=== PATIENT | male | born 1945 | race Caucasian/White ===

== ENCOUNTER → 2017-03-11 | Outpatient (CLI) | payer MEDICARE, BC ==
[~2017-03-11] MED LIST: CYMBALTA60 MG PO; FINASTERIDE5 MG PO; JANUMET 50-1,01 EACH PO; LIORESAL TAB 1010 MG PO; LIPITOR TAB 2020 MG PO; LORTAB 5-325 M1 EACH PO; METOPROLOL PO; NEURONTIN 400400 MG PO; PERCOCET 10-321 EACH PO; PLAVIX 75 MG TA75 MG PO; RAMIPRIL10 MG PO; TERAZOSIN HCL10 MG PO
== END ==
LOC: NM 09:00
DX: I20.8 Other forms of angina pectoris (principal); R53.83 Other fatigue; Z98.61 Coronary angioplasty status
CPT/HCPCS: 78452; 93017; A9502; J2785